=== PATIENT | female | born 1975 | race Caucasian/White ===

== ENCOUNTER 2023-03-14 18:55 | Emergency (ER) | payer MEDICAID ==
[~2023-03-14] VITALS: Ht 157.5 cm; Wt 113.4 kg
[2023-03-14 19:08] VITALS: TEMP 98; O2SAT 100
[2023-03-14] MEDS ORDERED: KETOROLAC 30MG/ML VIAL IM ONE (21:00)
[2023-03-14 21:21] VITALS: BP 173/11; PULSE 93; RESP 16
[2023-03-14] MEDS ORDERED: IBUP-2030 MT (22:20)
== END 2023-03-14 22:40 | disposition home or self-care (01) ==
LOC: ER 19:10
DX: M54.30 Sciatica, unspecified side (principal); M76.02 Gluteal tendinitis, left hip; F10.229 Alcohol dependence with intoxication, unspecified; Y90.0 Blood alcohol level of less than 20 mg/100 ml
CPT/HCPCS: 96372; 99283; J1885; Z7610

== ENCOUNTER 2023-04-08 12:00 | Emergency (ER) | payer OTHER, MEDICAID ==
[~2023-04-08] VITALS: Ht 165.1 cm; Wt 90.0 kg
[~2023-04-08 12:00] MED LIST: IBUP-2030 MT
[2023-04-08 12:05] VITALS: BP 137/113; PULSE 80; RESP 20; TEMP 98.8; O2SAT 100
[2023-04-08] MEDS ORDERED: NIRM1TAB PO (13:14)
[2023-04-08] MEDS ORDERED: IBUP-2028 MT (13:14)
== END 2023-04-08 13:34 | disposition home or self-care (01) ==
LOC: ER 12:00
DX: U07.1 COVID-19 (principal); M19.90 Unspecified osteoarthritis, unspecified site; Z98.890 Other specified postprocedural states
CPT/HCPCS: 99283